=== PATIENT | male | born 1945 | race Caucasian/White ===

== ENCOUNTER → 2017-02-25 | Outpatient (CLI) | payer MEDICARE, OTHER | LOC: M.MRI 07:59 | DX: S83.241A Other tear of medial meniscus, current injury, right knee, initial encounter (principal); M71.561 Other bursitis, not elsewhere classified, right knee; M25.461 Effusion, right knee; X58.XXXA Exposure to other specified factors, initial encounter; Y93.89 Activity, other specified; Y92.89 Other specified places as the place of occurrence of the external cause; Y99.8 Other external cause status ==

== ENCOUNTER 2019-11-24 15:24 | Inpatient (IN) | payer MEDICARE, OTHER ==
[~2019-11-24] VITALS: Ht 175.3 cm; Wt 107.5 kg
[2019-11-24 15:33] VITALS: BP 169/72
[2019-11-24] MEDS ORDERED: ZESTRIL5 MG PO (15:39)
[2019-11-24] MEDS ORDERED: ZOCOR 20 MG TAB20 M1 PO (15:39)
[2019-11-24] MEDS ORDERED: FLOMAX0.4 MG PO (15:40)
[2019-11-24 16:36] LABS: HEMATOCRIT 37.9 % (42.0-52.0); HEMOGLOBIN 13.4 gm/dL (14.0-18.0); MCHC 35.4 g/dL (28.0-37.0); MCV 87.6 fL (80.0-100.0); MPV 8.3 fl. (7.2-11.1); NUCLEATED RBCS 0 /100WBC; PLATELET COUNT* 140 thou/uL (150-400); RBC 4.33 mil/uL (4.50-6.00); RDW-CV 12.4 % (10.5-14.5); WBC 8.2 thou/uL (4.0-11.0)
[2019-11-24 16:45] LABS: CALCIUM 8.1 mg/dL (8.5-10.1); CREATININE 1.1 mg/dL (0.6-1.3); POTASSIUM 3.3 mmol/L (3.5-5.1)
[2019-11-24 16:56] LABS: ALBUMIN 3.1 g/dL (3.4-5.0); TOTAL BILIRUBIN 0.8 mg/dL (<0.1-1.0); TOTAL PROTEIN 7.1 g/dL (6.4-8.2)
[2019-11-24 18:34] LABS: ABSOLUTE LYMPHOCYTES 0.6 thou/uL (0.8-5.3); ABSOLUTE MONOCYTES 0.5 thou/uL (0.0-1.2); ABSOLUTE NEUTROPHILS 7.1 thou/uL (1.6-8.1); PLATELET ESTIMATE ADEQUATE
[2019-11-24 19:50] VITALS: BP 158/69
[2019-11-24 21:55] LABS: BE 1.1 mmol/L (-2 to +3); PCO2 36.8 mmHg (35.0-45.0); PO2 60.5 mmHg (75.0-100.0); pH 7.447 (7.340-7.450)
[2019-11-25 00:11] VITALS: BP 147/66
[2019-11-25 04:43] VITALS: BP 160/65
[2019-11-25 08:35] VITALS: BP 153/64
[2019-11-25 09:29] LABS: URINE BILIRUBIN NEGATIVE (Negative); URINE BLOOD NEGATIVE (Negative); URINE CLARITY CLEAR; URINE COLOR YELLOW; URINE GLUCOSE-RANDOM NEGATIVE (Negative); URINE KETONES NEGATIVE (Negative); URINE LEUKOCYTES-REFLEX NEGATIVE (Negative); URINE NITRITE-REFLEX NEGATIVE (Negative); URINE PROTEIN TRACE (Negative); URINE SPECIFIC GRAVITY >= 1.030 (1.005-1.030)
[2019-11-25 12:45] VITALS: BP 181/73
[2019-11-25 17:30] VITALS: BP 143/56
[2019-11-25 20:00] VITALS: BP 147/65
[2019-11-26] VITALS: BP 154/59
[2019-11-26 04:00] VITALS: BP 149/58
[2019-11-26 08:00] VITALS: BP 157/67
[2019-11-26 09:01] LABS: ABSOLUTE LYMPHOCYTES 0.9 thou/uL (0.8-5.3); ABSOLUTE MONOCYTES 0.7 thou/uL (0.0-1.2); ABSOLUTE NEUTROPHILS 9.4 thou/uL (1.6-8.1); BASOPHILS 0.1 %; HEMATOCRIT 38.3 % (42.0-52.0); HEMOGLOBIN 13.5 gm/dL (14.0-18.0); LYMPHOCYTES 8.1 %; MCH 30.4 pg (26.0-34.0); MCHC 35.2 g/dL (28.0-37.0); MCV 86.3 fL (80.0-100.0); MONOCYTES 6.6 %; MPV 8.1 fl. (7.2-11.1); NUCLEATED RBCS 0 /100WBC; PLATELET COUNT* 152 thou/uL (150-400); POLYS 85.2 %; RBC 4.44 mil/uL (4.50-6.00); RDW-CV 12.6 % (10.5-14.5)
--- NOTE | 2019-11-26 10:24 | EKG ---
[place] [address] ELECTROCARDIOGRAM REPORT Name: CAMILO OJEDA Room: [address] [place] .R.#: [id number] Admission: 11/24/19 Attend Phys: Juan Carlos Pascal Discharge: Date of : 45 Date of Service: 11/24/19 1601 Report #: [id number] THIS REPORT FOR: //name// [facility] ED Test Date: 2019-11-24 Test Time: 16:01:16 Pat Name: CAMILO OJEDA Department: Room: [facility] Gender: M Materials Planner/Production Planner: celso : 1945 Requested By: Israel Yang Order Number: [id number] MD: Norman Rivas Measurements Intervals [place] Rate: 77 P: 6 ID: [id number] QRS: -47 QRSD: 100 T: 23 QT: 383 QTc: 434 Interpretive Statements Sinus rhythm Atrial premature complexes Left axis deviation No previous ECG available for comparison Electronically Signed On 11-26-2019 10:24:01 CDT by Norman Rivas [email or web address] <ELECTRONICALLY SIGNED> By: Norman Rivas MD, [facility] 11/26/19 1024 1601 160 Norman Rivas MD, [facility] /EPI
[2019-11-26 16:03] VITALS: BP 145/58
[2019-11-26 20:00] VITALS: BP 152/68
[2019-11-27] VITALS: BP 123/81
[2019-11-27 04:00] VITALS: BP 126/62
[2019-11-27 09:00] VITALS: BP 151/50
[2019-11-27 13:30] VITALS: BP 133/58
[2019-11-27 13:48] LABS: ABSOLUTE LYMPHOCYTES 0.6 thou/uL (0.8-5.3); ABSOLUTE MONOCYTES 0.7 thou/uL (0.0-1.2); ABSOLUTE NEUTROPHILS 8.4 thou/uL (1.6-8.1); BASOPHILS 0.2 %; EOSINOPHILS 0.1 %; HEMATOCRIT 38.2 % (42.0-52.0); HEMOGLOBIN 13.5 gm/dL (14.0-18.0); MCHC 35.5 g/dL (28.0-37.0); MCV 87.4 fL (80.0-100.0); MONOCYTES 7.1 %; MPV 8.3 fl. (7.2-11.1); NUCLEATED RBCS 0 /100WBC; PLATELET COUNT* 162 thou/uL (150-400); POLYS 86.6 %; RBC 4.37 mil/uL (4.50-6.00); RDW-CV 12.9 % (10.5-14.5); WBC 9.7 thou/uL (4.0-11.0)
[2019-11-27 14:04] LABS: CALCIUM 8.5 mg/dL (8.5-10.1); CREATININE 0.9 mg/dL (0.6-1.3); MAGNESIUM 2.2 mg/dL (1.8-2.4); PHOSPHORUS* 2.4 mg/dL (2.5-4.9); POTASSIUM 3.5 mmol/L (3.5-5.1)
[2019-11-27 16:00] VITALS: BP 127/64
[2019-11-27 20:45] VITALS: BP 130/65
[2019-11-28 04:30] VITALS: BP 142/72
[2019-11-28 05:22] LABS: HEMATOCRIT 36.4 % (42.0-52.0); HEMOGLOBIN 12.9 gm/dL (14.0-18.0); MCH 30.5 pg (26.0-34.0); MCHC 35.3 g/dL (28.0-37.0); MCV 86.2 fL (80.0-100.0); MPV 8.1 fl. (7.2-11.1); NUCLEATED RBCS 0 /100WBC; PLATELET COUNT* 170 thou/uL (150-400); RBC 4.22 mil/uL (4.50-6.00); RDW-CV 12.4 % (10.5-14.5); WBC 8.4 thou/uL (4.0-11.0)
[2019-11-28 05:33] LABS: INR 1.1
[2019-11-28 06:15] LABS: CALCIUM 8.2 mg/dL (8.5-10.1); CREATININE 0.8 mg/dL (0.6-1.3); MAGNESIUM 2.3 mg/dL (1.8-2.4); POTASSIUM 4.2 mmol/L (3.5-5.1); TOTAL BILIRUBIN 0.6 mg/dL (<0.1-1.0); TOTAL PROTEIN 6.4 g/dL (6.4-8.2)
[2019-11-28 06:31] LABS: ABSOLUTE LYMPHOCYTES 0.6 thou/uL (0.8-5.3); ABSOLUTE MONOCYTES 0.4 thou/uL (0.0-1.2); ABSOLUTE NEUTROPHILS 7.4 thou/uL (1.6-8.1); METAMYELOCYTES 1 %
[2019-11-28 06:32] LABS: PLATELET ESTIMATE ADEQUATE
[2019-11-28 06:33] LABS: TOXIC GRANULATION 2+
[2019-11-28 08:15] VITALS: BP 130/70
[2019-11-28] MEDS ORDERED: PREDNISONE 10 M10 MG PO (10:25)
[2019-11-28 13:26] VITALS: BP 142/72
[2019-11-28 13:31] VITALS: BP 138/66
== END 2019-11-28 18:30 | disposition home or self-care (01) | DRG 177 ==
LOC: M.ERS 15:24 → M.TBA-ER 17:01 → M.2W 17:01
PROVIDERS: Emergency Medicine Emergency Medical Services; Internal Medicine Critical Care Medicine; ADMIT Internal Medicine; ATTEND Internal Medicine
DX: U07.1 COVID-19 (principal); J96.01 Acute respiratory failure with hypoxia; J12.89 Other viral pneumonia; D64.9 Anemia, unspecified; D69.6 Thrombocytopenia, unspecified; I10 Essential (primary) hypertension; N40.0 Benign prostatic hyperplasia without lower urinary tract symptoms; E86.0 Dehydration; E78.5 Hyperlipidemia, unspecified; Z79.899 Other long term (current) drug therapy; Z28.21 Immunization not carried out because of patient refusal

== ENCOUNTER → 2020-01-09 | Outpatient (CLI) | payer MEDICARE, OTHER ==
[~2020-01-09] MED LIST: FLOMAX0.4 MG PO; PREDNISONE 10 M10 MG PO; ZESTRIL5 MG PO; ZOCOR 20 MG TAB20 M1 PO
--- NOTE | 2020-01-09 09:27 | 2DMMODE ---
[place] [address] 2 D/M-MODE ECHOCARDIOGRAM Name: CAMILO OJEDA Room: [facility]#: [id number] Admission: 01/09/20 Attend Phys: Filipe Hernandez, Discharge: Date of : 45 Date of Service: 01/09/20 0927 Report #: [id number] THIS REPORT FOR: cc: Re Camarena Ann FNPC Biggs, F. Douglas MD [facility] ~ APPROVED REPORT Study performed: 01/09/2020 07:58:34 EXAM: Comprehensive 2D, Doppler, and color-flow Echocardiogram Patient Location: Out-Patient BSA: 2.22 HR: 55 bpm BP: 140/82 mmHg Other Information Study Quality: Good Indications Atrial Fibrillation 2D Dimensions IVSd: 12.34 (7-11mm) LVOT Diam: 20.95 (18-24mm) LVDd: 48.74 mm PWd: 12.29 (7-11mm) Ascending Ao: 37.64 (22-36mm) LVDs: 23.84 (25-40mm) Aortic Root: 40.61 mm Volumes Left Atrial Volume (Systole) LA ESV Index: 27.90 mL/m2 Aortic Valve AoV Peak Ned.: 0.97 m/s AO Peak Gr.: 3.78 mmHg LVOT Max P.76 mmHg AO Mean Gr.: 2.12 mmHg LVOT Mean P.03 mmHg LVOT Max V: 0.66 m/s AO V2 VTI: 23.30 cm LVOT Mean V: 0.48 m/s KIM (VTI): 2.30 cm2 LVOT V1 VTI: 15.54 cm Mitral Valve E/A Ratio: 1.83 [place] [address] 2 D/M-MODE ECHOCARDIOGRAM Name: CAMILO OJEDA Room: [facility]#: [id number] Admission: 01/09/20 Attend Phys: Filipe Hernandez, Discharge: Date of : 45 Date of Service: 01/09/20 0927 Report #: [id number] MV Decel. Time: 242.42 ms MV E Max Ned.: 0.76 m/s MV PHT: 70.30 ms MVA (PHT): 3.13 cm2 TDI E/Lateral E': 6.91 E/Medial E': 9.50 Medial E' Ned.: 0.08 m/s Lateral E' Ned.: 0.11 m/s Pulmonary Valve PV Peak Ned.: 1.12 m/s PV Peak Gr.: 4.98 mmHg Tricuspid Valve RAP Estimate: 5.00 mmHg TR Peak Gr.: 24.14 mmHg RVSP: 29.14 mmHg PA Pressure: 29.14 mmHg Left Ventricle The left ventricle is normal size. There is normal LV segmental wall motion. Mild concentric left ventricular hypertrophy. Left ventricular systolic function is normal. The left ventricular ejection fraction is within the normal range. LVEF is 55-60%. The left ventricular diastolic function is normal. Right Ventricle The right ventricle is normal size. The right ventricular systolic function is normal. Atria The left atrium size is normal. The right atrium size is normal. Aortic Valve Mild aortic valve sclerosis. No aortic regurgitation is present. There is no aortic valvular stenosis. Mitral Valve Mild mitral annular calcification. Mild mitral regurgitation. No evidence of mitral valve stenosis. Tricuspid Valve The tricuspid valve is normal in structure. Mild tricuspid regurgitation[place] [address] 2 D/M-MODE ECHOCARDIOGRAM Name: GONZALOCAMILO Rodríguez Room: [facility]#: [id number] Admission: 01/09/20 Attend Phys: Filipe Hernandez, Discharge: Date of : 45 Date of Service: 01/09/20 0927 Report #: [id number] The pulmonary valve is normal in structure. There is no pulmonic valvular regurgitation. Great Vessels The aortic root is normal in size. IVC is normal in size and collapses >50% with inspiration. Pericardium There is no pericardial effusion. <Conclusion> LVEF is 55-60%. The left ventricular diastolic function is normal. The left ventricle is normal size. Mild concentric left ventricular hypertrophy. There is normal LV segmental wall motion. Mild aortic valve sclerosis. There is no aortic valvular stenosis. No aortic regurgitation is present. Mild mitral regurgitation. Mild mitral annular calcification. No evidence of mitral valve stenosis. Mild tricuspid regurgitation. <ELECTRONICALLY SIGNED> By: Rubi Lucas MD, FACC 01/09/20926 6 6 Rubi Lucas MD, FACC /INF
== END ==
LOC: M.CRD 08:00
PROVIDERS: ATTEND Internal Medicine Cardiovascular Disease
DX: I08.3 Combined rheumatic disorders of mitral, aortic and tricuspid valves (principal); I48.91 Unspecified atrial fibrillation

== ENCOUNTER → 2021-02-20 | Outpatient (CLI) | payer MEDICARE, OTHER ==
[2021-02-20 13:00] VITALS: BP 134/83
[2021-02-20 13:06] VITALS: BP 142/70
[2021-02-20 13:09] VITALS: BP 142/70
[2021-02-20 13:11] VITALS: BP 125/81
[2021-02-20 13:17] VITALS: BP 126/74
[2021-02-20 13:20] VITALS: BP 110/64
--- NOTE | 2021-02-20 17:29 | CARD ---
[address] [address] CARDIAC CATH REPORT Name: CAMILO OJEDA Room: [facility]#: [id number] Admission: 02/20/21 Attend Phys: Filipe Hernandez MD Discharge: Date of : 45 Report #: [id number] THIS REPORT FOR: cc: Jeison Lerner John E. DO Liston, Michael J. MD [facility] ~ cc: Jeison Lerner DO DATE OF SERVICE: 02/20/2021 CARDIAC PROCEDURE PROCEDURE: DC cardioversion. INDICATION: Persistent atrial flutter. DESCRIPTION OF PROCEDURE: After informed consent was obtained, the patient was brought to the cardiac holding area. The patient received 4 mg of intravenous Versed and 100 mg of intravenous fentanyl for conscious sedation. Once the patient was adequately sedated, he was cardioverted from atrial flutter to normal sinus rhythm with a single biphasic shock of 300 joules. The patient tolerated the procedure well without complication. IMPRESSION: 1. Persistent atrial flutter. 2. Successful direct-current cardioversion to normal sinus rhythm. <ELECTRONICALLY SIGNED> By: Filipe Hernandez MD, [facility] 02/20/21 [address] [place], [place] [address]haeestrada Hernandez MD, FACC /nt
== END | disposition home or self-care (01) ==
LOC: M.CRD 10:03 → M.CL 12:11
PROVIDERS: ATTEND Internal Medicine Cardiovascular Disease
DX: I48.3 Typical atrial flutter (principal); I48.91 Unspecified atrial fibrillation; Z79.899 Other long term (current) drug therapy; Z79.01 Long term (current) use of anticoagulants

== ENCOUNTER → 2021-04-11 | Outpatient (CLI) | payer MEDICARE, OTHER | LOC: M.MRI 11:21 | PROVIDERS: ATTEND Nurse Practitioner Family | DX: I67.82 Cerebral ischemia (principal); G93.89 Other specified disorders of brain; R41.3 Other amnesia ==